=== PATIENT | male | born 1975 | race Hispanic/Latino ===

== ENCOUNTER 2021-09-19 10:16 | Emergency (ER) | payer SELFPAY ==
[~2021-09-19] VITALS: Ht 157.5 cm; Wt 58.0 kg
[2021-09-19 10:32] VITALS: BP 117/86
[2021-09-19] MEDS ORDERED: HYDROCO/APAP1 TA9 PO (12:28)
== END 2021-09-19 14:10 | disposition home or self-care (01) | DRG 563 ==
LOC: ED 10:16 → EDBD 10:16 → ED 11:09
PROC: 2W3RX1Z Immobilization of Left Lower Leg using Splint (ICD-10-PCS; principal; 2021-09-19)
DX: S82.62XA Displaced fracture of lateral malleolus of left fibula, initial encounter for closed fracture (principal); X50.0XXA Overexertion from strenuous movement or load, initial encounter